=== PATIENT | female | born 1970 | race Two or more races ===

== ENCOUNTER 2019-12-27 03:27 | Emergency (ER) | payer OTHER ==
[~2019-12-27] VITALS: Ht 167.6 cm; Wt 77.1 kg
[~2019-12-27 03:27] MED LIST: METFORMIN HCL500 M1 ORAL
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
[2019-12-27] MEDS ORDERED: IBUPROFEN600 M1 ORAL (03:39)
[2019-12-27] MEDS ORDERED: HYDROcodone/Acetamin 5/325 tab ORAL ONE (03:45)
[2019-12-27 03:50] VITALS: BP 138/86
[2019-12-27 04:31] VITALS: BP 124/87
== END 2019-12-27 04:32 | disposition home or self-care (01) ==
LOC: EDUNIT# 03:27 → EDBD 03:27 → EMR 03:43
DX: M79.10 Myalgia, unspecified site (principal); E11.9 Type 2 diabetes mellitus without complications; I10 Essential (primary) hypertension
CPT/HCPCS: 99282